=== PATIENT | female | born 1990 ===

== ENCOUNTER 2017-01-08 05:20 | Inpatient (IN) | payer OTHER ==
[2017-01-08] MEDS ORDERED: Carboprost Tromethamine 250 MCG/1 ML Amp IM PRN (06:22)
[2017-01-08] MEDS ORDERED: Sodium Chloride 0.9% 2.5 ML Syringe FLUSH PRN (06:22)
[2017-01-08] MEDS ORDERED: Lidocaine 1% 50 ML MDV INJECT PRN (06:22)
[2017-01-08] MEDS ORDERED: Methylergonovine 0.2 MG/1 ML Amp IM PRN (06:22)
[2017-01-08] MEDS ORDERED: Water For Irrigation,Sterile 1,000 ML Container IRR PRN (06:22)
[2017-01-08] MEDS ORDERED: Sodium Chloride 0.9% 10 ML Syringe FLUSH PRN (06:22)
[2017-01-08] MEDS ORDERED: Nalbuphine 10 MG/1 ML Vial IVPUSH PRN ×2 (06:22→15:18)
[2017-01-08] MEDS ORDERED: Misoprostol 200 MCG Tab PO PRN (06:22)
[2017-01-08] MEDS ORDERED: Oxytocin/0.9 % Sodium Chloride 30 UNIT/500 ML BAG IV SCH ×2 (06:30→13:15)
[2017-01-08] MEDS: Lactated Ringers 1,000 ML IV SCH ×4 (06:38→14:05)
[2017-01-08] MEDS: Butorphanol 1 MG/ML SDV IVPUSH PRN ×2 (08:08→09:29)
--- NOTE | 2017-01-08 08:38 | PCM.LDHP ---
L&D History of Present Illness - General Date of Service: 01/08/17 Admit Problem/Dx: Patient Status Order with Admit Dx/Problem 01/08/17 06:23 Patient Status [ADT] Routine Admission Diagnosis/Problem Admission Diagnosis/Problem -related examination 01/08/17 08:35 26yo EDC EDC 30 0/7 weeks. Comes to L&D due to active labor. O +, RI, GBS neg. 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: Social & Family History - Family History Family Medical History: Noncontributory - Tobacco Use Smoking Status *Q: Former Smoker Years of Tobacco use: 11 Used Tobacco, but Quit: Yes Month Tobacco Last Used: 06/2016 Second Hand Smoke Exposure: No - Caffeine Use Caffeine Use: Reports: None - Recreational Drug Use Recreational Drug Use: No H&P Review of Systems - Review of Systems: Review Of Systems: See Below General: Reports: No Symptoms HEENT: Reports: No Symptoms Pulmonary: Reports: No Symptoms Cardiovascular: Reports: No Symptoms Gastrointestinal: Reports: No Symptoms Genitourinary: Reports: No Symptoms Musculoskeletal: Reports: No Symptoms Skin: Reports: No Symptoms Psychiatric: Reports: No Symptoms Neurological: Reports: No Symptoms Hematologic/Lymphatic: Reports: No Symptoms Immunologic: Reports: No Symptoms L&D Exam - Exam Exam: See Below - Vital Signs Weight: 95.708 kg - OB Specific Contraction Intensity: Strong Movement: Active Heart Tones: Present Heart Rate (FHR) Variability: Moderate (6-25 bmp) Presentation: Vertex - Exam General: Alert, Oriented, Cooperative HEENT: Hearing Intact Lungs: Clear to Auscultation, Normal Respiratory Effort Cardiovascular: Regular Rate, Regular Rhythm GI/Abdominal Exam: Soft, Non-Tender Rectal Exam: Deferred Genitourinary: Cervical dilitation Back Exam: Full Range of Motion Extremities: Normal Range of Motion, Non-Tender, No Pedal Edema, Normal Capillary Refill Skin: Warm, Dry, Intact Neurological: Reflexes Equal Bilateral, Normal Speech, Normal Tone, Sensation Intact Psychiatric: Alert, Normal Affect, Normal Mood - Patient Data Lab Results Last 24 hrs: Laboratory Results - last 24 hr 01/08/17 01/08/17 Range/Units 06:38 06:38 WBC 13.60 H (4.0-11.0) K/uL RBC 4.01 L (4.30-5.90) M/uL Hgb 11.8 L (12.0-16.0) g/dL Hct 33.9 L (36.0-46.0) % MCV 84.5 (80.0-98.0) fL MCH 29.4 (27.0-32.0) pg MCHC 34.8 (31.0-37.0) g/dL RDW Std Deviation 50.1 (28.0-62.0) fl RDW Coeff of Altaf 16 H (11.0-15.0) % Plt Count 147 L (150-400) K/uL MPV 10.50 (7.40-12.00) fL Nucleated RBC % 0.0 /100WBC Nucleated RBCs # 0 K/uL Blood Type O POSITIVE Antibody Screen NEGATIVE Result Diagrams: 01/08/17 06:38 - Problem List (1) Supervision of normal IUP (intrauterine ) in primigravida SNOMED Code(s): 66672548, 521008633, 785213221 ICD Code: Z34.00 - ENCNTR FOR SUPRVSN OF NORMAL FIRST , UNSP TRIMESTER Status: Acute Current Visit: Yes Qualifiers: Trimester: third trimester Qualified Code(s): Z34.03 - Encounter for supervision of normal first , third trimester Problem List Initiated/Reviewed/Updated: Yes Orders Last 24hrs: Active Orders 24 hr Category Date Time Status Patient Status [ADT] Routine ADT 01/08/17 06:23 Active Heart Tones [RC] CONTINUOUS Care 01/08/17 06:23 Active Non Stress Test [RC] PER UNIT ROUTINE Care 01/08/17 06:23 Active May Shower [RC] ASDIRECTED Care 01/08/17 06:23 Active Notify Provider [RC] PRN Care 01/08/17 06:23 Active Up ad Janet [RC] ASDIRECTED Care 01/08/17 06:23 Active Vaginal Exam [RC] PRN Care 01/08/17 06:23 Active Vital Signs [RC] PER UNIT ROUTINE Care 01/08/17 06:23 Active Butorphanol [Stadol] Med 01/08/17 06:22 Active 1 mg IVPUSH ASDIRECTED PRN Carboprost Tromethamine [Hemabate DS] Med 01/08/17 06:22 Active 250 mcg IM ASDIRECTED PRN Lactated Ringers [Ringers, Lactated] 1,000 ml Med 01/08/17 06:30 Active IV ASDIRECTED Lidocaine 1% [Xylocaine 1%] Med 01/08/17 06:22 Active 50 ml INJECT .ONCE PRN Methylergonovine [Methergine] Med 01/08/17 06:22 Active 0.2 mg IM ASDIRECTED PRN Misoprostol [Cytotec] Med 01/08/17 06:22 Active 200 mcg PO .ONCE PRN Nalbuphine [Nubain] Med 01/08/17 06:22 Active 10 mg IVPUSH ASDIRECTED PRN Oxytocin/0.9 % Sodium Chloride [Oxytocin 30 Unit/500 ML Med 01/08/17 06:30 Active -NS] 30 unit in 500 ml IV TITRATE Sodium Chloride 0.9% [Saline Flush] Med 01/08/17 06:22 Active 10 ml FLUSH ASDIRECTED PRN Sodium Chloride 0.9% [Saline Flush] Med 01/08/17 06:22 Active 2.5 ml FLUSH ASDIRECTED PRN Water For Irrigation,Sterile [Sterile Water for Med 01/08/17 06:22 Active Irrigation] 1,000 ml IRR ASDIRECTED PRN Scalp Electrode [WOMSER] Per Unit Routine Oth 01/08/17 06:23 Ordered Peripheral IV Insertion Adult [OM.PC] Routine Oth 01/08/17 06:23 Ordered Resuscitation Status Routine Resus Stat 01/08/17 06:22 Ordered Medication Orders Butorphanol Tartrate (Stadol) 1 mg IVPUSH ASDIRECTED PRN PRN Reason: Pain Last Admin: 01/08/17 08:08 Dose: 1 mg Carboprost Tromethamine (Hemabate Ds) 250 mcg IM ASDIRECTED PRN PRN Reason: Post Hemorrhage Lactated Ringer's (Ringers, Lactated) 1,000 mls @ 150 mls/hr IV ASDIRECTED [facility] Last Admin: 01/08/17 06:38 Dose: 150 mls/hr Oxytocin/Sodium Chloride (Oxytocin 30 Unit/500 Ml-Ns) 30 unit in 500 mls @ 999 mls/hr IV TITRATE [facility] Lidocaine HCl (Xylocaine 1%) 50 ml INJECT .ONCE PRN PRN Reason: Laceration repair Methylergonovine Maleate (Methergine) 0.2 mg IM ASDIRECTED PRN PRN Reason: Post Hemorrhage Misoprostol (Cytotec) 200 mcg PO .ONCE PRN PRN Reason: Post Hemorrhage Nalbuphine HCl (Nubain) 10 mg IVPUSH ASDIRECTED PRN PRN Reason: Pain (severe 7-10) Sodium Chloride (Saline Flush) 10 ml FLUSH ASDIRECTED PRN PRN Reason: Keep Vein Open Sodium Chloride (Saline Flush) 2.5 ml FLUSH ASDIRECTED PRN PRN Reason: Keep Vein Open Sterile Water (Sterile Water For Irrigation) 1,000 ml IRR ASDIRECTED PRN PRN Reason: delivery Assessment/Plan Comment:: Labor A: 26yo EDC EDC 30 0/7 weeks. Comes to L&D due to active labor. O+, RI, GBS neg. P: Admit to L&D, pain medication or epidural prn, anticipate . Dr Ochoa updated on pt status
[2017-01-08] MEDS ORDERED: Ropivacaine HCl/PF 100 ML ONE (09:37)
[2017-01-08] MEDS ORDERED: fentaNYL 100 MCG/2 ML SDV ONE ×3 (09:37→16:09)
--- NOTE | 2017-01-08 10:28 | PCM.PREANE ---
Preanesthetic Assessment - Anesthesia/Transfusion/Family Hx Anesthesia History: Prior Anesthesia Without Reaction Family History of Anesthesia Reaction: No Transfusion History: No Prior Transfusion(s) - Review of Systems General: No Symptoms Pulmonary: No Symptoms Cardiovascular: No Symptoms Gastrointestinal: No Symptoms Neurological: No Symptoms Other: Reports: None - Physical Assessment NPO Status Date: 01/08/17 NPO Status Time: 10:24 (sips/chips) Pulse: 110 Blood Pressure: 146/86 Height: 5 ft 5 in Weight: 211 lb ASA Class: 2 Mental Status: Alert & Oriented x3 Airway Class: Mallampati = 2 Dentition: Reports: Normal Dentition Thyro-Mental Finger Breadths: 3 Mouth Opening Finger Breadths: 3 ROM/Head Extension: Full Lungs: Clear to Auscultation, Normal Respiratory Effort Cardiovascular: Regular Rate, Regular Rhythm - Lab Values: Laboratory Last Values WBC 13.60 K/uL (4.0-11.0) H 01/08/17 06:38 RBC 4.01 M/uL (4.30-5.90) L 01/08/17 06:38 Hgb 11.8 g/dL (12.0-16.0) L 01/08/17 06:38 Hct 33.9 % (36.0-46.0) L 01/08/17 06:38 MCV 84.5 fL (80.0-98.0) 01/08/17 06:38 MCH 29.4 pg (27.0-32.0) 01/08/17 06:38 MCHC 34.8 g/dL (31.0-37.0) 01/08/17 06:38 RDW Std Deviation 50.1 fl (28.0-62.0) 01/08/17 06:38 RDW Coeff of Altaf 16 % (11.0-15.0) H 01/08/17 06:38 Plt Count 147 K/uL (150-400) L 01/08/17 06:38 MPV 10.50 fL (7.40-12.00) 01/08/17 06:38 Nucleated RBC % 0.0 /100WBC 01/08/17 06:38 Nucleated RBCs # 0 K/uL 01/08/17 06:38 Blood Type O POSITIVE 01/08/17 06:38 Antibody Screen NEGATIVE 01/08/17 06:38 - Allergies Allergies/Adverse Reactions: Allergies Allergy/AdvReac Type Severity Reaction Status Date / Time No Known Allergies Allergy Verified 01/07/17 05:02 - Blood Blood Available: No Product(s) Available: None - Anesthesia Plan Free Text/Narrative:: Labor Epidural - Acknowledgements Anesthesia Type Planned: Epidural Pt an Appropriate Candidate for the Planned Anesthesia: Yes Alternatives and Risks of Anesthesia Discussed w Pt/Guardian: Yes Pt/Guardian Understands and Agrees with Anesthesia Plan: Yes PreAnesthesia Questionnaire - Past Health History Medical/Surgical History: Denies Medical/Surgical History Gastrointestinal History: Reports: GERD 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 Smoking Status *Q: Former Smoker Tobacco Use Within Last Twelve Months: Cigarettes Second Hand Smoke Exposure: No Recreational Drug Use History: No - CURRENT (IN HOUSE) MEDS Current Meds: Current Medications Butorphanol Tartrate (Stadol) 1 mg IVPUSH ASDIRECTED PRN PRN Reason: Pain Last Admin: 01/08/17 09:29 Dose: 1 mg Carboprost Tromethamine (Hemabate Ds) 250 mcg IM ASDIRECTED PRN PRN Reason: Post Hemorrhage Lactated Ringer's (Ringers, Lactated) 1,000 mls @ 150 mls/hr IV ASDIRECTED [facility] Last Admin: 01/08/17 10:14 Dose: 150 mls/hr Oxytocin/Sodium Chloride (Oxytocin 30 Unit/500 Ml-Ns) 30 unit in 500 mls @ 999 mls/hr IV TITRATE [facility] Lidocaine HCl (Xylocaine 1%) 50 ml INJECT .ONCE PRN PRN Reason: Laceration repair Methylergonovine Maleate (Methergine) 0.2 mg IM ASDIRECTED PRN PRN Reason: Post Hemorrhage Misoprostol (Cytotec) 200 mcg PO .ONCE PRN PRN Reason: Post Hemorrhage Nalbuphine HCl (Nubain) 10 mg IVPUSH ASDIRECTED PRN PRN Reason: Pain (severe 7-10) Sodium Chloride (Saline Flush) 10 ml FLUSH ASDIRECTED PRN PRN Reason: Keep Vein Open Sodium Chloride (Saline Flush) 2.5 ml FLUSH ASDIRECTED PRN PRN Reason: Keep Vein Open Sterile Water (Sterile Water For Irrigation) 1,000 ml IRR ASDIRECTED PRN PRN Reason: delivery Discontinued Medications Fentanyl (Sublimaze) Confirm Administered Dose 100 mcg .ROUTE .STK-MED ONE Stop: 01/08/17 09:38 Ropivacaine (Naropin 0.2%) Confirm Administered Dose 100 mls @ as directed .ROUTE .STK-MED ONE Stop: 01/08/17 09:38
[2017-01-08] MEDS ORDERED: Acetaminophen 500 MG Tab ONE (14:34)
[2017-01-08] MEDS ORDERED: Acetaminophen 500 MG Tab PO ONE (14:43)
[2017-01-08] MEDS ORDERED: ceFAZolin 1,000 MG VIAL IVPUSH ONE (15:04)
[2017-01-08] MEDS ORDERED: Bupivacaine 0.5% 10 ML SDV ONE (15:10)
[2017-01-08] MEDS ORDERED: Citric Acid/Sodium Citrate Solution 30 ML Cup ONE (15:14)
[2017-01-08] MEDS ORDERED: ceFAZolin 2 GM in Premix Bag 1 BAG IV ONE (15:15)
[2017-01-08] MEDS ORDERED: Morphine PF 10 MG/10 ML SDV ONE (15:17)
--- NOTE | 2017-01-08 15:17 | PCM.SN ---
- Free Text/Narrative Note: called for woman laboring with a working epidural. No distress. 5'5", 211#, NKDA, taking clear liquids during labor. Process of using her epidural for her Csection explained, discussion included duramorph and pruritis, Ancef 2 gm ordered as well as bicitra. Questions answered, consent obtained.
[2017-01-08] MEDS ORDERED: fentaNYL 100 MCG/2 ML SDV IVPUSH PRN (15:18)
[2017-01-08] MEDS ORDERED: Acetaminophen/oxyCODONE 325-5 MG Tab PO PRN ×2 (15:18→16:19)
[2017-01-08] MEDS ORDERED: Oxytocin 10 Units/1 ML SDV ONE (15:19)
[2017-01-08] MEDS ORDERED: Octyl 2-Cyanoacrylate 1 Tube ONE (16:13)
[2017-01-08] MEDS ORDERED: Ondansetron 4 MG/2 ML SDV IV PRN (16:19)
[2017-01-08] MEDS ORDERED: Bisacodyl 10 MG Supp RECTAL PRN (16:19)
[2017-01-08] MEDS ORDERED: Lanolin 100% Cream 7 GM Tube TOP PRN (16:19)
[2017-01-08] MEDS ORDERED: diphenhydrAMINE 50 MG/ML SDV IVPUSH PRN (16:19)
--- NOTE | 2017-01-08 16:23 | PCM.OPNOTE ---
- General Post-Op/Procedure Note Date of Surgery/Procedure: 01/08/17 Operative Procedure(s): Primary C/ Section Pre Op Diagnosis: IUP 38wks Failiar to progress Post-Op Diagnosis: Same Anesthesia Technique: Epidural Primary Surgeon: Eleuterio Ochoa Chemical Recovery Operator: Rosita Lin EBL in mLs: 800 Complications: None Condition: Good
[2017-01-08] MEDS ORDERED: Lactated Ringers 1,000 ML IV SCH (16:30)
--- NOTE | 2017-01-08 17:04 | PCM.POSTAN ---
POST ANESTHESIA ASSESSMENT - MENTAL STATUS Mental Status: Alert, Oriented - RESPIRATORY Respiratory Status: Respiratory Rate WNL, Airway Patent, O2 Saturation Stable, Supplemental Oxygen (per NC) - CARDIOVASCULAR CV Status: Pulse Rate WNL, Blood Pressure Stable - GASTROINTESTINAL GI Status: No Symptoms - PAIN Pain Score: 0 - POST OP HYDRATION Hydration Status: Adequate & Stable - OBSERVATIONS Free Text/Narrative:: Pt stable for tx to OB for Phase II recovery. No complaints at this time.
[2017-01-08] MEDS: Ketorolac 30 MG/ML SDV IVPUSH SCH ×2 (17:05→22:26)
[2017-01-08] MEDS: Docusate Sodium 100 MG Cap PO SCH (21:05)
--- NOTE | 2017-01-08 21:35 | OR ---
SURGEON: Eleuterio Ochoa MD DATE OF PROCEDURE: 01/08/2017 PREOPERATIVE DIAGNOSIS: Intrauterine at 38 weeks, active labor, and failure to progress. POSTOPERATIVE DIAGNOSIS: Intrauterine at 38 weeks, active labor, and failure to progress. OPERATION PERFORMED: Primary low-transverse section. SHERIFF DETECTIVE: Rosita Lin, certified nurse liver trimmer. ANESTHESIA: Epidural, Mora Dubose and Dr. Senior. ESTIMATED BLOOD LOSS: 800 mL. COMPLICATIONS: None. FINDINGS: Male fetus in the vertex position. score reported to be 8 and 9, and weight is not available. The resolution expert is Dr. Valiente and she has attended the delivery. INDICATIONS FOR SURGERY: This patient is 26. She is primigravida. She is 38 weeks plus. She is followed in our clinic, primarily seen by our nurse liver trimmer, Rosita Lin. She is admitted in active labor with spontaneous rupture of the membranes earlier this morning. At the time of the admission, she was 3 to 4 cm, vertex, -3 re-station. She had regular contractions. She progressed to 4 to 5. She had epidural anesthesia for labor analgesia. heart rate was category I. The patient later on to progress to 7 cm vertex with significant caput and -3. The patient has had Pitocin augmentation for labor. In spite of adequate contractions and augmentation, the patient did not progress beyond off 7 cm. The diagnosis of failure to progress, possibly due to cephalopelvic disproportion was entertained and a decision was made to do a section and that was discussed with the patient and her . They both consented for this procedures and consent was signed. PROCEDURE IN DETAIL: The patient was brought to the OR, properly identified. After adequate level of epidural anesthesia, time-out was taken. The patient was prepped and draped in a sterile fashion as usual with a Serra catheter in the bladder. A low- transverse Pfannenstiel skin incision was done. García fascia and rectus fascia were opened in the direction of the incision. The 2 recti muscles were and peritoneal cavity was entered. Bladder flap was raised in the usual manner pushing the bladder away from the lower uterine segment. Low- transverse uterine incision was done and extended manually, and fetus was in the vertex position and it was delivered without any problem. The fetus cried immediately and later on the scores reported to be 8 and 9 and the weight was not available. The placenta was delivered spontaneously, complete, and intact without any problem. Next, the bladder retractors were placed in place and repair of the lower uterine segment was done with 2-0 Vicryl continuous interlocking in two layers without any problem. Inspection of the lower uterine segment shows no oozing, no bleeding, then reperitonealization was done with 3-0 Vicryl continuous. Then the peritoneal cavity was evacuated completely from all blood and blood clot and closed with 3-0 Vicryl continuous. The rectus fascia was closed with #1 PDS double strand continuous. The García's fascia with 3-0 Vicryl continuous and the skin with 3-0 Vicryl on a Raul needle in a subcuticular fashion and Dermabond. Instrument and sponge counts were correct. The patient tolerated the procedure well, and went to the recovery room in stable, general condition. SETH / VASQUEZ /[id number]
[2017-01-09] MEDS: Ketorolac 30 MG/ML SDV IVPUSH SCH ×3 (04:48→17:12)
--- NOTE | 2017-01-09 08:00 | PCM48HPAN ---
Post Anesthesia Note - EVALUATION WITHIN 48HRS OF ANESTHETIC Vital Signs in Normal Range: Yes Patient Participated in Evaluation: Yes Respiratory Function Stable: Yes Airway Patent: Yes Cardiovascular Function Stable: Yes Hydration Status Stable: Yes Pain Control Satisfactory: Yes Nausea and Vomiting Control Satisfactory: Yes Mental Status Recovered: Yes - COMMENTS/OBSERVATIONS Free Text/Narrative:: Pt has been out of bed with no problem and reports good pain control with no nausea. No apparent anesthesia complications.
[2017-01-09] MEDS: Docusate Sodium 100 MG Cap PO SCH ×2 (08:51→21:38)
[2017-01-09] MEDS: Acetaminophen/oxyCODONE 325-5 MG Tab PO PRN ×2 (18:02→23:56)
[2017-01-09] MEDS ORDERED: Ibuprofen 800 MG Tab PO PRN (22:00)
--- NOTE | 2017-01-09 22:20 | PCM.PNPP ---
- General Info Date of Service: 01/09/17 Functional Status: Reports: Pain Controlled - Review of Systems General: Reports: No Symptoms HEENT: Reports: No Symptoms Pulmonary: Reports: No Symptoms Cardiovascular: Reports: No Symptoms Gastrointestinal: Reports: No Symptoms Genitourinary: Reports: No Symptoms Musculoskeletal: Reports: No Symptoms Skin: Reports: No Symptoms Neurological: Reports: No Symptoms Psychiatric: Reports: No Symptoms - General Info Date of Service: 01/09/17 - Patient Data Vital Signs - Most Recent: Last Vital Signs Temp 36.6 C 01/09/17 17:00 Pulse 102 H 01/09/17 17:00 Resp 17 01/09/17 17:00 BP 120/54 L 01/09/17 17:00 Pulse Ox 97 01/09/17 17:00 Weight - Most Recent: 95.708 kg I&O - Last 24 Hours: Intake & Output 01/09/17 01/09/17 01/09/17 06:59 14:59 22:59 Intake Total 2980 500 Output Total 1700 800 Balance 1280 -300 Lab Results - Last 24 Hours: Laboratory Results - last 24 hr 01/09/17 Range/Units 05:07 Hgb 9.4 L (12.0-16.0) g/dL Hct 27.9 L (36.0-46.0) % Med Orders - Current: Current Medications Bisacodyl (Dulcolax) 10 mg RECTAL .ONCE PRN PRN Reason: Constipation Butorphanol Tartrate (Stadol) 1 mg IVPUSH ASDIRECTED PRN PRN Reason: Pain Last Admin: 01/08/17 09:29 Dose: 1 mg Carboprost Tromethamine (Hemabate Ds) 250 mcg IM ASDIRECTED PRN PRN Reason: Post Hemorrhage Diphenhydramine HCl (Benadryl) 25 mg IVPUSH Q6H PRN PRN Reason: Itching or Nausea Docusate Sodium (Colace) 100 mg PO BID [facility] Last Admin: 01/09/17 21:38 Dose: 100 mg Emollient Ointment (Lansinoh Hpa) 0 gm TOP ASDIRECTED PRN PRN Reason: Sore Nipples Lactated Ringer's (Ringers, Lactated) 1,000 mls @ 150 mls/hr IV ASDIRECTED [facility] Last Admin: 01/08/17 14:05 Dose: 150 mls/hr Oxytocin/Sodium Chloride (Oxytocin 30 Unit/500 Ml-Ns) 30 unit in 500 mls @ 999 mls/hr IV TITRATE [facility] Oxytocin/Sodium Chloride (Oxytocin 30 Unit/500 Ml-Ns) 30 unit in 500 mls @ 2 mls/hr IV TITRATE [facility]; 2 MUNITS/MIN PRN Reason: Protocol Last Infusion: 01/08/17 14:42 Dose: 0 munits/min, 0 mls/hr Lactated Ringer's (Ringers, Lactated) 1,000 mls @ 125 mls/hr IV ASDIRECTED [facility] Last Admin: 01/08/17 17:57 Dose: 125 mls/hr Ibuprofen (Motrin) 800 mg PO Q8H PRN PRN Reason: mild pain or fever Lidocaine HCl (Xylocaine 1%) 50 ml INJECT .ONCE PRN PRN Reason: Laceration repair Methylergonovine Maleate (Methergine) 0.2 mg IM ASDIRECTED PRN PRN Reason: Post Hemorrhage Misoprostol (Cytotec) 200 mcg PO .ONCE PRN PRN Reason: Post Hemorrhage Nalbuphine HCl (Nubain) 10 mg IVPUSH ASDIRECTED PRN PRN Reason: Pain (severe 7-10) Ondansetron HCl (Zofran) 4 mg IV Q4H PRN PRN Reason: Nausea/Vomiting Oxycodone/Acetaminophen (Percocet 325-5 Mg) 1 tab PO ONETIME PRN PRN Reason: Pain (moderate 4-6) Oxycodone/Acetaminophen (Percocet 325-5 Mg) 1 tab PO Q4H PRN PRN Reason: Pain (moderate 4-6) Last Admin: 01/09/17 18:02 Dose: 1 tab Oxycodone/Acetaminophen (Percocet 325-5 Mg) 2 tab PO Q4H PRN PRN Reason: Pain (moderate 4-6) Sodium Chloride (Saline Flush) 10 ml FLUSH ASDIRECTED PRN PRN Reason: Keep Vein Open Sodium Chloride (Saline Flush) 2.5 ml FLUSH ASDIRECTED PRN PRN Reason: Keep Vein Open Sterile Water (Sterile Water For Irrigation) 1,000 ml IRR ASDIRECTED PRN PRN Reason: delivery Discontinued Medications Acetaminophen (Tylenol Extra Strength) Confirm Administered Dose 1,000 mg .ROUTE .STK-MED ONE Stop: 01/08/17 14:35 Last Admin: 01/08/17 20:46 Dose: Not Given Acetaminophen (Tylenol Extra Strength) 1,000 mg PO ONETIME ONE Stop: 01/08/17 14:44 Last Admin: 01/08/17 15:10 Dose: 1,000 mg Bupivacaine HCl (Sensorcaine-Mpf 0.5%) Confirm Administered Dose 20 ml .ROUTE .STK-MED ONE Stop: 01/08/17 15:11 Last Admin: 01/08/17 20:46 Dose: Not Given Citric Acid/Sodium Citrate (Bicitra Solution) Confirm Administered Dose 30 ml .ROUTE .STK-MED ONE Stop: 01/08/17 15:15 Last Admin: 01/08/17 15:20 Dose: 30 ml Fentanyl (Sublimaze) Confirm Administered Dose 100 mcg .ROUTE .STK-MED ONE Stop: 01/08/17 09:38 Last Admin: 01/08/17 20:45 Dose: Not Given Fentanyl (Sublimaze) Confirm Administered Dose 100 mcg .ROUTE .STK-MED ONE Stop: 01/08/17 15:10 Last Admin: 01/08/17 20:46 Dose: Not Given Fentanyl (Sublimaze) 50 mcg IVPUSH Q5M PRN PRN Reason: Pain (severe 7-10) Stop: 01/09/17 15:18 Fentanyl (Sublimaze) Confirm Administered Dose 100 mcg .ROUTE .STK-MED ONE Stop: 01/08/17 16:10 Ropivacaine (Naropin 0.2%) Confirm Administered Dose 100 mls @ as directed .ROUTE .STK-MED ONE Stop: 01/08/17 09:38 Last Admin: 01/08/17 20:45 Dose: Not Given Cefazolin Sodium/Dextrose 2 gm (/ Premix) 50 mls @ 100 mls/hr IV ONETIME ONE Stop: 01/08/17 15:44 Last Admin: 01/08/17 20:47 Dose: Not Given Ketorolac Tromethamine (Toradol) 30 mg IVPUSH Q6H [facility] Stop: 01/09/17 16:31 Last Admin: 01/09/17 17:12 Dose: 30 mg Morphine Sulfate (Duramorph Pf) Confirm Administered Dose 10 mg .ROUTE .STK-MED ONE Stop: 01/08/17 15:18 Nalbuphine HCl (Nubain) 2.5 mg IVPUSH Q3H PRN PRN Reason: Pruritis Stop: 01/09/17 15:19 Last Admin: 01/09/17 02:36 Dose: 2.5 mg Octyl Cyanoacrylate (Dermabond Advance) Confirm Administered Dose 1 applic .ROUTE .STK-MED ONE Stop: 01/08/17 16:14 Oxytocin (Pitocin) Confirm Administered Dose 30 unit .ROUTE .STK-MED ONE Stop: 01/08/17 15:20 - Interaction Infant Disposition, : in Room with Family Infant Interaction: Holding Infant Infant Feeding: Attempted ; Nursed Fair/Poor Support Person: , Significant Other - Recovery Exam Fundal Tone: Firm Fundal Level: At Umbilicus Fundal Placement: Midline Lochia Amount: Scant Lochia Color: Rubra/Red Perineum Description: Intact, Minimal Bruising/Swelling Episiotomy/Laceration: None Bladder Status: Voiding Urinary Elimination: Indwelling Catheter - Exam General: Alert, Oriented HEENT: Pupils Equal Neck: Supple Lungs: Clear to Auscultation, Normal Respiratory Effort Cardiovascular: Regular Rate, Regular Rhythm GI/Abdominal Exam: Normal Bowel Sounds, Soft, Non-Tender, No Organomegaly, No Distention, No Abnormal Bruit, No Mass, Pelvis Stable Extremities: Normal Inspection, Normal Range of Motion, Non-Tender, No Pedal Edema, Normal Capillary Refill Skin: Warm, Dry, Intact Wound/Incisions: Healing Well Neurological: No New Focal Deficit Psy/Mental Status: Alert, Normal Affect, Normal Mood - Problem List Review Problem List Initiated/Reviewed/Updated: Yes - My Orders Last 24 Hours: My Active Orders 01/09/17 22:00 Ibuprofen [Motrin] 800 mg PO Q8H PRN 01/09/17 Breakfast Regular Diet [DIET] - Assessment Assessment:: S/P C/section doing well - Plan Plan:: Labor A: 26yo EDC EDC 30 0/7 weeks. Comes to L&D due to active labor. O+, RI, GBS neg. P: Admit to L&D, pain medication or epidural prn, anticipate . Dr Ochoa updated on pt status
[2017-01-10] MEDS: Acetaminophen/oxyCODONE 325-5 MG Tab PO PRN (04:08)
[2017-01-10] MEDS: Docusate Sodium 100 MG Cap PO SCH (08:53)
--- NOTE | 2017-01-10 09:58 | PCM.DCSUM1 ---
Discharge Summary - Discharge Data Discharge Date: 01/10/17 Discharge Disposition: Home, Self-Care 01 Condition: Good - Patient Summary/Data Operative Procedure(s) Performed: Primary C/ Section - Patient Instructions Diet: Usual Diet as Tolerated Driving: Do Not Drive Showering/Bathing: June Shower Wound/Incision Care: Keep Operative Site/Wound Site Clean and Dry Notify Provider of: Fever, Increased Pain, Nausea and/or Vomiting - Discharge Plan Referrals: [facility] [Outside] Rosita Lin CNM [Mid-] - (1 week- January 16 @ 10:45am w/ Rosita Lin 6 week- February 23 @ 13:30pm w/ Rosita Lin) - General Info Date of Service: 01/10/17 Functional Status: Reports: Pain Controlled - Review of Systems General: Reports: No Symptoms HEENT: Reports: No Symptoms Pulmonary: Reports: No Symptoms Cardiovascular: Reports: No Symptoms Gastrointestinal: Reports: No Symptoms Genitourinary: Reports: No Symptoms Musculoskeletal: Reports: No Symptoms Skin: Reports: No Symptoms Neurological: Reports: No Symptoms Psychiatric: Reports: No Symptoms - Patient Data Vitals - Most Recent: Last Vital Signs Temp 36.8 C 01/10/17 08:41 Pulse 105 H 01/10/17 08:41 Resp 18 01/10/17 08:41 BP 129/73 01/10/17 08:41 Pulse Ox 97 01/10/17 08:41 Weight - Most Recent: 95.708 kg Med Orders - Current: Current Medications Bisacodyl (Dulcolax) 10 mg RECTAL .ONCE PRN PRN Reason: Constipation Butorphanol Tartrate (Stadol) 1 mg IVPUSH ASDIRECTED PRN PRN Reason: Pain Last Admin: 01/08/17 09:29 Dose: 1 mg Carboprost Tromethamine (Hemabate Ds) 250 mcg IM ASDIRECTED PRN PRN Reason: Post Hemorrhage Diphenhydramine HCl (Benadryl) 25 mg IVPUSH Q6H PRN PRN Reason: Itching or Nausea Docusate Sodium (Colace) 100 mg PO BID JASON Last Admin: 01/10/17 08:53 Dose: 100 mg Emollient Ointment (Lansinoh Hpa) 0 gm TOP ASDIRECTED PRN PRN Reason: Sore Nipples Lactated Ringer's (Ringers, Lactated) 1,000 mls @ 150 mls/hr IV ASDIRECTED JASON Last Admin: 01/08/17 14:05 Dose: 150 mls/hr Oxytocin/Sodium Chloride (Oxytocin 30 Unit/500 Ml-Ns) 30 unit in 500 mls @ 999 mls/hr IV TITRATE JASON Oxytocin/Sodium Chloride (Oxytocin 30 Unit/500 Ml-Ns) 30 unit in 500 mls @ 2 mls/hr IV TITRATE JASON; 2 MUNITS/MIN PRN Reason: Protocol Last Infusion: 01/08/17 14:42 Dose: 0 munits/min, 0 mls/hr Lactated Ringer's (Ringers, Lactated) 1,000 mls @ 125 mls/hr IV ASDIRECTED JASON Last Admin: 01/08/17 17:57 Dose: 125 mls/hr Ibuprofen (Motrin) 800 mg PO Q8H PRN PRN Reason: mild pain or fever Last Admin: 01/09/17 23:57 Dose: 800 mg Lidocaine HCl (Xylocaine 1%) 50 ml INJECT .ONCE PRN PRN Reason: Laceration repair Methylergonovine Maleate (Methergine) 0.2 mg IM ASDIRECTED PRN PRN Reason: Post Hemorrhage Misoprostol (Cytotec) 200 mcg PO .ONCE PRN PRN Reason: Post Hemorrhage Nalbuphine HCl (Nubain) 10 mg IVPUSH ASDIRECTED PRN PRN Reason: Pain (severe 7-10) Ondansetron HCl (Zofran) 4 mg IV Q4H PRN PRN Reason: Nausea/Vomiting Oxycodone/Acetaminophen (Percocet 325-5 Mg) 1 tab PO ONETIME PRN PRN Reason: Pain (moderate 4-6) Oxycodone/Acetaminophen (Percocet 325-5 Mg) 1 tab PO Q4H PRN PRN Reason: Pain (moderate 4-6) Last Admin: 01/10/17 04:08 Dose: 1 tab Oxycodone/Acetaminophen (Percocet 325-5 Mg) 2 tab PO Q4H PRN PRN Reason: Pain (moderate 4-6) Last Admin: 01/10/17 08:53 Dose: 2 tab Sodium Chloride (Saline Flush) 10 ml FLUSH ASDIRECTED PRN PRN Reason: Keep Vein Open Sodium Chloride (Saline Flush) 2.5 ml FLUSH ASDIRECTED PRN PRN Reason: Keep Vein Open Sterile Water (Sterile Water For Irrigation) 1,000 ml IRR ASDIRECTED PRN PRN Reason: delivery Discontinued Medications Acetaminophen (Tylenol Extra Strength) Confirm Administered Dose 1,000 mg .ROUTE .STK-MED ONE Stop: 01/08/17 14:35 Last Admin: 01/08/17 20:46 Dose: Not Given Acetaminophen (Tylenol Extra Strength) 1,000 mg PO ONETIME ONE Stop: 01/08/17 14:44 Last Admin: 01/08/17 15:10 Dose: 1,000 mg Bupivacaine HCl (Sensorcaine-Mpf 0.5%) Confirm Administered Dose 20 ml .ROUTE .STK-MED ONE Stop: 01/08/17 15:11 Last Admin: 01/08/17 20:46 Dose: Not Given Citric Acid/Sodium Citrate (Bicitra Solution) Confirm Administered Dose 30 ml .ROUTE .STK-MED ONE Stop: 01/08/17 15:15 Last Admin: 01/08/17 15:20 Dose: 30 ml Fentanyl (Sublimaze) Confirm Administered Dose 100 mcg .ROUTE .STK-MED ONE Stop: 01/08/17 09:38 Last Admin: 01/08/17 20:45 Dose: Not Given Fentanyl (Sublimaze) Confirm Administered Dose 100 mcg .ROUTE .STK-MED ONE Stop: 01/08/17 15:10 Last Admin: 01/08/17 20:46 Dose: Not Given Fentanyl (Sublimaze) 50 mcg IVPUSH Q5M PRN PRN Reason: Pain (severe 7-10) Stop: 01/09/17 15:18 Fentanyl (Sublimaze) Confirm Administered Dose 100 mcg .ROUTE .STK-MED ONE Stop: 01/08/17 16:10 Ropivacaine (Naropin 0.2%) Confirm Administered Dose 100 mls @ as directed .ROUTE .STK-MED ONE Stop: 01/08/17 09:38 Last Admin: 01/08/17 20:45 Dose: Not Given Cefazolin Sodium/Dextrose 2 gm (/ Premix) 50 mls @ 100 mls/hr IV ONETIME ONE Stop: 01/08/17 15:44 Last Admin: 01/08/17 20:47 Dose: Not Given Ketorolac Tromethamine (Toradol) 30 mg IVPUSH Q6H JASON Stop: 01/09/17 16:31 Last Admin: 01/09/17 17:12 Dose: 30 mg Morphine Sulfate (Duramorph Pf) Confirm Administered Dose 10 mg .ROUTE .STK-MED ONE Stop: 01/08/17 15:18 Nalbuphine HCl (Nubain) 2.5 mg IVPUSH Q3H PRN PRN Reason: Pruritis Stop: 01/09/17 15:19 Last Admin: 01/09/17 02:36 Dose: 2.5 mg Octyl Cyanoacrylate (Dermabond Advance) Confirm Administered Dose 1 applic .ROUTE .STK-MED ONE Stop: 01/08/17 16:14 Oxytocin (Pitocin) Confirm Administered Dose 30 unit .ROUTE .STK-MED ONE Stop: 01/08/17 15:20 - Exam General: Reports: Alert, Oriented HEENT: Reports: Pupils Equal, Pupils Reactive, EOMI, Mucous Membr. Moist/[place] Neck: Reports: Supple Lungs: Reports: Clear to Auscultation, Normal Respiratory Effort Cardiovascular: Reports: Regular Rate, Regular Rhythm GI/Abdominal Exam: Normal Bowel Sounds, Soft, Non-Tender, No Organomegaly, No Distention, No Abnormal Bruit, No Mass, Pelvis Stable (Female) Exam: Normal External Exam, Normal Speculum Exam, Normal Bimanual Exam Rectal (Female) Exam: Normal Exam, Normal Rectal Tone Back Exam: Reports: Normal Inspection, Full Range of Motion Extremities: Normal Inspection, Normal Range of Motion, Non-Tender, No Pedal Edema, Normal Capillary Refill Skin: Reports: Warm, Dry, Intact Wound/Incisions: Reports: Healing Well Neurological: Reports: No New Focal Deficit Psy/Mental Status: Reports: Alert, Normal Affect, Normal Mood *Q Meaningful Use (DIS) - VTE *Q VTE Criteria *Q: - Stroke *Q Stroke Criteria *Q: - AMI *Q AMI Criteria *Q:
== END 2017-01-10 12:02 | disposition home or self-care (01) | DRG 766 ==
LOC: MW.OB 05:20 → MW.OBCHECK 05:20 → MW.OB 06:23 → OBSVTOIN 16:00
PROVIDERS: ADMIT Obstetrics & Gynecology; ATTEND Obstetrics & Gynecology
PROC: 10D00Z1 Extraction of Products of Conception, Low, Open Approach (ICD-10-PCS; principal; 2017-01-08)
DX: O32.4XX0 Maternal care for high head at term, not applicable or unspecified (principal); Z3A.38 38 weeks gestation of pregnancy; Z37.0 Single live birth
CPT/HCPCS: 01967; 01968; 36415; 51702; 59025; 85014; 85018; 85027; 86850; 86900; 86901; A9270-GY; J0595; J1885; J2270; J2300; J2590; J2795; J3010; J7120